=== PATIENT | female | born 1990 | race Caucasian/White ===

== ENCOUNTER 2019-03-22 09:22 | Emergency (ER) | payer SELFPAY ==
[~2019-03-22] VITALS: Ht 167.6 cm; Wt 93.9 kg
[2019-03-22 09:33] VITALS: Ht 167.6 cm; Wt 93.9 kg
[2019-03-22 10:27] LABS: BASOPHIL % 0.6 % (0-2); PLATELET COUNT 321 x10^3mcL (130-400); RED CELL DISTRIBUTION WIDTH 14.5 % (11.5-14.5)
[2019-03-22 12:18] VITALS: BP 105/71
== END 2019-03-22 12:18 | disposition home or self-care (01) ==
LOC: ED 09:22
PROVIDERS: Emergency Medicine
DX: N83.202 Unspecified ovarian cyst, left side (principal); N92.0 Excessive and frequent menstruation with regular cycle; Z98.890 Other specified postprocedural states
CPT/HCPCS: J1885; J2270; J2405; Q0092

== ENCOUNTER 2019-04-18 16:40 | Emergency (ER) | payer BC ==
[~2019-04-18] VITALS: Ht 170.2 cm; Wt 91.6 kg
[2019-04-18 16:43] VITALS: Ht 170.2 cm; Wt 91.6 kg
[2019-04-18 20:34] LABS: BASOPHIL % 0.7 % (0-2); PLATELET COUNT 258 x10^3mcL (130-400); RED CELL DISTRIBUTION WIDTH 14.6 % (11.5-14.5)
[2019-04-18 20:46] LABS: CALCIUM 9.2 mg/dL (8.5-10.1); CARBON DIOXIDE 24.6 mmol/L (21-32); CHLORIDE SERUM 102 mmol/L (98-107); CREATININE SERUM 0.5 mg/dL (0.6-1.0); GFR1 > 60 mL/min; GLUCOSE SERUM 86 mg/dL (74-106); POTASSIUM SERUM 3.6 mmol/L (3.5-5.1); SODIUM SERUM 138 mmol/L (136-145)
[2019-04-18 20:50] LABS: ALBUMIN 3.9 g/dL (3.4-5.0); ALKALINE PHOSPHATASE 85 U/L (46-116); ALT/SGPT 55 U/L (14-59); AST/SGOT 27 U/L (15-37); BILIRUBIN TOTAL 0.4 mg/dL (0.20-1.00)
[2019-04-18 21:02] LABS: FREE T4 1.03 ng/dL (0.76-1.46)
[2019-04-19 00:05] VITALS: BP 147/85
== END 2019-04-19 00:05 | disposition home or self-care (01) ==
LOC: ED 16:40 → MU 23:11 → ED 23:11 → MU 04-19 00:05
PROVIDERS: Emergency Medicine; Specialist
DX: R10.30 Lower abdominal pain, unspecified (principal); R63.0 Anorexia; R11.0 Nausea; Z98.890 Other specified postprocedural states
CPT/HCPCS: 84439; G0378; J1885; J2270; J2405; J2765; J3010; J7030